=== PATIENT | female | born 1950 | race Hispanic/Latino ===

== ENCOUNTER 2018-07-14 19:12 | Emergency (ER) | payer MEDICARE ==
--- OUTSIDE RECORDS SUMMARY | 2018-07-14 19:16 | XMS REPORT | Summary of Care ---
:1950 Author Organization [facility] Address [address] [place], [place] [address]- Encounter HQ Encntr_alias(FIN) [id number] Date(s): 09/03/17 - 09/03/17 [facility] [address] [place] [phone]- Discharge Disposition: Home or Self Care Attending Physician: Pili Mosley X RAY TECHNICIAN Vital Signs No data available for this section Problem List Condition Effective Dates Status Health Status Informant Afib(Confirmed) Active Congestive heart failure Active (CHF)(Confirmed) Hypercholesteremia(Confirmed) Active Hypertension(Confirmed) Active Simple obesity(Confirmed) Active Allergies, Adverse Reactions, Alerts Substance Reaction Severity Status NKDA Active Medications No data available for this section Results No data available for this section Immunizations No data available for this section Procedures Procedure Date Related Diagnosis Body Site Status Cardioversion Completed Cervical smear biopsy taken Completed Social History Social History Type Response Substance Abuse Use: None. Exercise Exercise duration: 30. Exercise frequency: 3-4 times/week. Exercise type: Aerobics. Employment/School Status: Retired. Alcohol Past, Type Beer. Smoking Status Never smoker; Concerns about tobacco use in household: No; Exposure to Tobacco Smoke None; Cigarette Smoking Last 365 Days No; Reg Smoking Cessation Counseling No entered on: 08/30/17 Assessment and Plan No data available for this section
--- OUTSIDE RECORDS SUMMARY | 2018-07-14 19:16 | XMS REPORT | Summary of Care ---
:1950 Author Organization [facility] Address [address] [place] [address]- Encounter HQ Arturo_yan(SUPRIYA) [id number] Date(s): 04/26/17 - 04/26/[address] [address]- [phone] Discharge Disposition: Home or Self Care Attending Physician: Kingsley Aguilar DO Admitting Physician: Kingsley Aguilar DO Referring Physician: Kingsley Aguilar DO Vital Signs Most recent to oldest 1 2 3 [Reference Range]: Height 154.94 cm (04/23/17 9:50 AM) Blood Pressure [90-140/60-90 132/63 mmHg 139/74 mmHg 130/63 mmHg mmHg] (04/26/17 12:10 PM) (04/26/17 11:53 AM) (04/26/17 11:38 AM) Respiratory Rate [14-20 22 BRMIN 20 BRMIN 21 BRMIN BRMIN] *HI* (04/26/17 11:53 AM) *HI* (04/26/17 12:10 PM) (04/26/17 11:38 AM) Weight 76.364 kg (04/23/17 9:50 AM) Body Mass Index 31.81 m2 (04/23/17 9:50 AM) Problem List Condition Effective Dates Status Health Status Informant Afib(Confirmed) Active Congestive heart failure Active (CHF)(Confirmed) Hypercholesteremia(Confirmed) Active Hypertension(Confirmed) Active Allergies, Adverse Reactions, Alerts Substance Reaction Severity Status NKDA Active Medications BD Normal Saline Flush 25 mL, Route: IV, Drug Form: INJ, PRN, PRN Line Flush, Start date: 04/26/17 6:00 :00 DEVELOPMENTAL PSYCHOLOGIST, Duration: 30 day, Stop date: 05/26/17 5:59:00 DEVELOPMENTAL PSYCHOLOGIST Notes: (Same as: BD Posiflush) Start Date: 04/26/17 Stop Date: 04/26/17 Status: DiscontinuedBD Normal Saline Flush 10 mL, Route: IV, Drug Form: INJ, PRN, PRN Line Flush, Start date: 04/26/17 6:00 :00 DEVELOPMENTAL PSYCHOLOGIST, Duration: 30 day, Stop date: 05/26/17 5:59:00 DEVELOPMENTAL PSYCHOLOGIST Notes: (Same as: BD Posiflush) Start Date: 04/26/17 Stop Date: 04/26/17 Status: Discontinuedbuffered lidocaine 1% INJ 0.1 mL, Route: INTRADERM, Drug Form: SOLN, Dosing Weight 76.364, kg, ONCALL, Start date: 04/26/17 9:00:00 DEVELOPMENTAL PSYCHOLOGIST, Duration: 1 doses or times Notes: Ingredients: 2 ml lidocaine 1% inj , 0.2ml sodium bicarbonate 8.4% inj total volume=2.2ml Refrigerate: 14 days Room temp: 7 days Start Date: 04/26/17 Stop Date: 04/26/17 Status: DiscontinuedLactated Ringers Injection IV 1,000 mL 1,000 mL, Rate: 25 ml/hr, Infuse over: 40 hr, Route: IV, Dosing Weight 76.364 kg , Total Volume: 1,000, Start date: 04/26/17 8:41:00 DEVELOPMENTAL PSYCHOLOGIST, Duration: 30 day, Stop date: 05/26/17 8:40:00 DEVELOPMENTAL PSYCHOLOGIST, 1.84, m2 Start Date: 04/26/17 Stop Date: 04/26/17 Status: Discontinued Results ELECTROLYTES Most recent to oldest [Reference Range]: 1 Sodium Lvl [135-145 mEq/L] 140 mEq/L (04/26/17 9:20 AM) Potassium Lvl [3.5-5.1 mEq/L] 3.4 mEq/L *LOW* (04/26/17 9:20 AM) HEMATOLOGY Most recent to oldest [Reference Range]: 1 Hgb [12.0-16.0 g/dL] 12.3 g/dL (04/26/17 9:20 AM) Hct [36.0-48.0 %] 36.2 % (04/26/17 9:20 AM) Platelet [133-450 K/CMM] 123 K/CMM *LOW* (04/26/17 9:20 AM) PT [12.0-14.7 seconds] 16.0 seconds *HI* (04/26/17 9:20 AM) INR [0.85-1.17] 1.27 *HI* (04/26/17 9:20 AM) PTT [22.9-35.8 seconds] 32.9 seconds (04/26/17 9:20 AM) Immunizations No data available for this section Procedures Procedure Date Related Diagnosis Body Site Cardioversion Cervical smear biopsy taken Social History Social History Type Response Substance Abuse Use: None. Alcohol Past, Type Beer. Smoking Status Never smoker; Concerns about tobacco use in household: No; Exposure to Tobacco Smoke None; Cigarette Smoking Last 365 Days No; Reg Smoking Cessation Counseling No Assessment and Plan No data available for this section
--- OUTSIDE RECORDS SUMMARY | 2018-07-14 19:16 | XMS REPORT | Summary of Care ---
:1950 Author Organization [facility] Address [address] [place], [place] [address]- Encounter HQ Marissa(FIN) [id number] Date(s): 03/15/17 - 03/15/17 [facility] [address] [facility] [address] [place] [address] [phone] Discharge Disposition: Home or Self Care Attending Physician: Lucero Rothman MD Referring Physician: Lucero Rothman MD Vital Signs Most recent to oldest [Reference Range]: 1 Height 154.94 cm (03/15/17 3:16 PM) Blood Pressure [90-140/60-90 mmHg] 147/95 mmHg *HI* (03/15/17 3:16 PM) Peripheral Pulse Rate [60-100 bpm] 108 bpm *HI* (03/15/17 3:16 PM) Weight 82.727 kg (03/15/17 3:16 PM) Body Mass Index 34.46 m2 (03/15/17 3:16 PM) Problem List No data available for this section Allergies, Adverse Reactions, Alerts Substance Reaction Severity Status NKDA Active Medications aspirin 81 mg tablet, chewable 81 mg=1 tab, PO, Daily, tab, 0 Refill(s) Start Date: 03/15/17 Status: Orderedatorvastatin 20 mg oral tablet 20 mg=1 tab, PO, Bedtime, # 90 tab, 3 Refill(s), Pharmacy: [facility]/pharmacy #[id number] Start Date: 03/15/17 Status: Orderedatorvastatin 20 mg oral tablet 20 mg=1 tab, PO, Bedtime, # 90 tab, 0 Refill(s) Start Date: 03/15/17 Stop Date: 03/15/17 Status: DiscontinuedCo-Q10 PO, Daily, 0 Refill(s) Start Date: 03/15/17 Status: Ordereddiltiazem 30 mg oral tablet 30 mg=1 tab, PO, Q6H, # 120 tab, 0 Refill(s) Start Date: 03/15/17 Stop Date: 03/15/17 Status: DiscontinuedEliquis 5 mg oral tablet 5 mg=1 tab, PO, BID, # 60 tab, 6 Refill(s), [id number] Start Date: 03/15/17 Status: Orderedfurosemide 40 mg oral tablet 40 mg=1 tab, PO, Daily, # 90 tab, 3 Refill(s), [id number] Start Date: 03/15/17 Status: Orderedfurosemide 40 mg oral tablet 40 mg=1 tab, PO, Daily, # 90 tab, 1 Refill(s) Start Date: 03/15/17 Stop Date: 03/15/17 Status: Discontinuedlisinopril 10 mg oral tablet 10 mg=1 tab, PO, Daily, # 90 tab, 3 Refill(s), [id number] Start Date: 03/15/17 Status: Orderedlisinopril 10 mg oral tablet 10 mg=1 tab, PO, Daily, # 90 tab, 0 Refill(s) Start Date: 03/15/17 Stop Date: 03/15/17 Status: Discontinuedmetoprolol tartrate 50 mg oral tablet 50 mg=1 tab, PO, BID, # 180 tab, 3 Refill(s), [id number] Start Date: 03/15/17 Status: Orderedmetoprolol tartrate 50 mg oral tablet 50 mg=1 tab, PO, BID, # 180 tab, 0 Refill(s) Start Date: 03/15/17 Stop Date: 03/15/17 Status: Discontinuedpantoprazole 40 mg oral enteric coated tablet 40 mg=1 tab, PO, Daily, # 90 tab, 3 Refill(s), [id number] Start Date: 03/15/17 Status: Orderedpantoprazole 40 mg oral enteric coated tablet 40 mg=1 tab, PO, Daily, # 90 tab, 0 Refill(s) Start Date: 03/15/17 Stop Date: 03/15/17 Status: Discontinuedpotassium chloride 20 mEq oral tablet, extended release 20 mEq=1 tab, PO, Daily, # 90 tab, 3 Refill(s), [id number] Start Date: 03/15/17 Status: Orderedpotassium chloride 20 mEq oral tablet, extended release 20 mEq=1 tab, PO, Daily, # 90 tab, 1 Refill(s) Start Date: 03/15/17 Stop Date: 03/15/17 Status: Discontinuedsotalol 80 mg oral tablet 80 mg=1 tab, PO, BID, # 180 tab, 3 Refill(s), [id number] Start Date: 03/15/17 Status: Orderedwarfarin 5 mg oral tablet 5 mg=1 tab, PO, Daily, # 90 tab, 0 Refill(s) Start Date: 03/15/17 Stop Date: 03/15/17 Status: Discontinued Results No data available for this section Immunizations No data available for this section Procedures No data available for this section Social History Social History Type Response Smoking Status Never smoker; Concerns about tobacco use in household: No; Exposure to Tobacco Smoke None; Cigarette Smoking Last 365 Days No; Reg Smoking Cessation Counseling No Assessment and Plan No data available for this section
--- OUTSIDE RECORDS SUMMARY | 2018-07-14 19:16 | XMS REPORT | Continuity of Care Document ---
:1950 Author Organization Interface Problems Problem Status Onset Classification Date Comments Source Date Reported 3 MONTH FOLLOW UP Active 11/30/[address] Paroxysmal atrial 09/08/19 01/05/2018 [facility] fibrillation [address] [place] [address] I48.0 Active 08/31/[address] 3 MONTH F/U Active 05/10/[address] FOLLOW UP Active 04/26/[address] CHF Active 03/15/[address] NEW PATIENT/ A-FIB, Active 01/29/20 [facility] CHF/SELF REF [address] [place] [address] Afib Active Problem 01/05/2018 [facility] Dickey,[facility] Congestive heart Active Problem [facility]/05[facility] (<span Keli, ID="[id number]">Con [place] firmed</span>) [facility] Hypercholesteremia Active Problem 01/05/2018 [facility]LOS Dickey,[facility] Hypertension Active Problem 01/05/2018 [facility]ARLOS Dickey,[facility] Dilated 01/05/2018 [facility] cardiomyopathy [facility] Long QT syndrome 01/05/2018 [facility] Hypertensive heart 01/05/2018 [facility] disease with heart Medical failure Center Chronic systolic 01/05/2018 [facility] heart failure [facility] 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 [facility] Pure 01/05/2018 [facility] hypercholesterolemia, 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 01/05/2018 [facility] aspirin [facility] half-way use of 01/05/2018 [facility] anticoagulants [facility] Atrial premature 01/05/2018 [facility] Simple obesity Active Problem 01/05/2018 [facility] GERD Active Problem 03/04/2018 [facility] Hepatitis B core Active Diagnosis 03/04/2018 [facility] antibody positive [facility] Elevated liver Active Diagnosis 03/04/2018 [facility] enzymes [facility] Encounter for Active Diagnosis 12/29/2017 Sal screening for [facility] malignant neoplasm of Gastro colon Medications Medication Details Route Status Patient Ordering Order Source Instructions Provider Date Suprep Bowel As directed By Mouth Active -- By Mouth Javy [facility] Prep kit 018 [facility] metoprolol 100 mg=1 Active [place] tartrate 100 mg tab, PO, 018 Medical oral tablet BID, # 180 Center tab, 3 Refill(s), Pharmacy: [facility]/pharmac y #[id number], new dose...d/c 50 mg tab amLODIPine 5 mg 5 mg=1 tab, Active [place] oral tablet PO, Daily, 018 Medical # 90 tab, 3 Center Refill(s), Pharmacy: [facility]/pharmac y #[id number] metoprolol 50 mg=1 No Longer [facility] tartrate 50 mg tab, PO, Active 018 Medical oral tablet BID, # 180 Center tab, 1 Refill(s), Pharmacy: [facility]/pharmac y #[id number] sotalol 160 mg 160 mg=1 Active [facility] oral tablet tab, PO, 017 Medical BID, # 180 Center tab, 3 Refill(s), Pharmacy: [facility]/pharmac y #[id number], new dose...d/c 80 mg rx Lidocaine 0.1 mL, Inactive [facility] Route: [facility] INTRADERM, Drug Form: SOLN, Dosing Weight 76.364, kg, ONCALL, Start date: 04/26/17 9:00:00 CYBER REVERSE ENGINEER, Duration: 1 doses or timesNotes: Ingredients : 2 ml lidocaine 1% inj , 0.2ml sodium bicarbonate 8.4% inj total volume=2.2m l Refrigerate : 14 days Room temp: 7 days Calcium 1,000 mL, Inactive [facility] Chloride 0.0014 Rate: 25 017 Hospital MEQ/ML / ml/hr, Potassium Infuse Chloride 0.004 over: 40 MEQ/ML / Sodium hr, Route: Chloride 0.103 IV, Dosing MEQ/ML / Sodium Weight Lactate 0.028 76.364 kg, MEQ/ML Total Injectable Volume: Solution 1,000, Start date: 04/26/17 8:41:00 CYBER REVERSE ENGINEER, Duration: 30 day, Stop date: 05/26/17 8:40:00 CYBER REVERSE ENGINEER, 1.84, m2 BD Normal 25 mL, Inactive [facility] Saline Flush Route: IV, 017 Hospital Drug Form: INJ, PRN, PRN Line Flush, Start date: 04/26/17 6:00:00 CYBER REVERSE ENGINEER, Duration: 30 day, Stop date: 05/26/17 5:59:00 CSTNotes: (Same as: BD Posiflush) apixaban 5 MG 5 mg=1 tab, Active [place] Oral Tablet PO, BID, # 017 Medical [Eliquis] 60 tab, 6 Center Refill(s), Pharmacy: [facility]/pharmac y #[id number] sotalol 80 mg 80 mg=1 Active [place] oral tablet tab, PO, 017 Medical BID, # 180 Center tab, 3 Refill(s), Pharmacy: [facility]/pharmac y #[id number] potassium 20 mEq=1 Active [place] chloride 20 mEq tab, PO, 017 Medical oral tablet, Daily, # 90 Center extended tab, 3 release Refill(s), Pharmacy: [facility]/pharmac y #[id number] pantoprazole 40 40 mg=1 Active [place] mg oral enteric tab, PO, 017 Medical coated tablet Daily, # 90 Center tab, 3 Refill(s), Pharmacy: [facility]/pharmac y #[id number] metoprolol 50 mg=1 Active [facility] tartrate 50 mg tab, PO, 017 Medical oral tablet BID, # 180 Center tab, 3 Refill(s), Pharmacy: [facility]/pharmac y #[id number] lisinopril 10 10 mg=1 Active [place] mg oral tablet tab, PO, 017 Medical Daily, # 90 Center tab, 3 Refill(s), Pharmacy: [facility]/pharmac y #[id number] Furosemide 40 40 mg=1 Active [place] MG Oral Tablet tab, PO, 017 Medical Daily, # 90 Center tab, 3 Refill(s), Pharmacy: [facility]/pharmac y #[id number] atorvastatin 20 20 mg=1 Active [place] mg oral tablet tab, PO, 017 Medical Bedtime, # Center 90 tab, 3 Refill(s), Pharmacy: [facility]/pharmac y #[id number] Co-Q10 PO, Daily, Active [place] 0 Refill(s) 017 Medical Center pantoprazole 40 40 mg=1 Inactive [place] mg oral enteric tab, PO, 017 Medical coated tablet Daily, # 90 Center tab, 0 Refill(s) Aspirin 81 MG 81 mg=1 Active [facility] Chewable Tablet tab, PO, 017 Medical Daily, tab, Center 0 Refill(s) metoprolol 50 mg=1 Inactive [facility] tartrate 50 mg tab, PO, 017 Medical oral tablet BID, # 180 Center tab, 0 Refill(s) potassium 20 mEq=1 Inactive [facility] chloride 20 mEq tab, PO, 017 Medical oral tablet, Daily, # 90 Center extended tab, 1 release Refill(s) lisinopril 10 10 mg=1 Inactive [facility] mg oral tablet tab, PO, 017 Medical Daily, # 90 Center tab, 0 Refill(s) Furosemide 40 40 mg=1 Inactive [facility] MG Oral Tablet tab, PO, 017 Medical Daily, # 90 Center tab, 1 Refill(s) diltiazem 30 mg 30 mg=1 Inactive [facility] oral tablet tab, PO, 017 Medical Q6H, # 120 Center tab, 0 Refill(s) warfarin 5 mg 5 mg=1 tab, Inactive [facility] oral tablet PO, Daily, 017 Medical # 90 tab, 0 Center Refill(s) atorvastatin 20 20 mg=1 Inactive [facility] mg oral tablet tab, PO, 017 Medical Bedtime, # Center 90 tab, 0 Refill(s) lisinopril 1 tab(s) orally Active 10 mg orally [facility] once a day [facility] atorvastatin 1 tab(s) orally Active 20 mg orally [facility] once a day [facility] pantoprazole 1 tab(s) orally Active 40 mg orally [facility] once a day [facility] furosemide 1 tab(s) orally Active 40 mg orally [facility] once daily [facility] amlodipine 1 tab(s) orally Active 5 mg orally [facility] once a day [facility] aspirin 1 tab(s) orally Active 81 mg orally [facility] once a day [facility] potassium 1 tab(s) orally Active 20 mEq orally [facility] chloride 2 times a day [facility] Co Q-10 1 cap(s) orally Active 100 mg orally [facility] once a day [facility] apixaban 1 tab(s) orally Active 5 mg orally 2 [facility] times a day [facility] ubiquinone not defined NA Active [facility] furosemide 1 tab(s) orally Active 40 mg orally [facility] once daily [facility] Allergies, Adverse Reactions, Alerts Substance Category Reaction Severity Reaction Status Date Comments Source type Reported N.K.D.A. Adverse Info Not Adverse Active [facility] Reaction Available Reaction 8 [facility] Immunizations Immunization Date Given Site Status Last Updated Comments Source Results Order Name Results Value Reference Date Interpretation Comments Source Range Abdomen RUQ Abdomen PROCEDURE: RIGHT UPPER QUADRANT ABDOMINAL ULTRASOUND 01/28 [facility] US RUQ US /2017 [facility] INDICATION: Elevated liver enzymes. Read by: Del Luo MD Dictated Date/time: 01/28/18 14:29 Electronically Signed by: Del Luo MD 01/28/18 14:32 FINAL REPORT COMPARISON: None TECHNIQUE: Sonographic evaluation of the right upper quadrant of the abdomen was performed with supplemental color and pulsed Doppler. FINDINGS: LIVER: The liver is normal in contour and morphology with normal parenchymal echogenicity. GALLBLADDER: There are no gallstones, sludge, pericholecystic fluid, or wall thickening. BILE DUCTS: No intrahepatic biliary dilatation. The common bile duct measures 8 mm. PANCREAS: The visualized portions of the pancreas appear normal with much of the pancreas obscured by overlying gas. RIGHT KIDNEY: The right kidney measures 8.8 cm in length. Normal renal contour and morphology with normal echogenicity. There is no hydronephrosis. Additional comments: No free fluid seen in Gilbert's pouch. IMPRESSION: Mild prominence of the common bile duct. Otherwise, normal exam. SL: [id number] Ext Lower Ext Lower Procedure: Right Lower Extremity Arterial Ultrasound. 09/13 [facility] Arterial Arterial /2017 [facility] Doppler Doppler unilat US unilat US Clinical Indication: Aneurysm of right lower extremity artery, hypertension. Read by: Diogo Candelaria MD Dictated Date/time: 09/13/17 14:32 Electronically Signed by: Diogo Candelaria MD 09/13/17 14:35 FINAL REPORT Comparison: None. TECHNIQUE: Bilateral lower extremity arterial Doppler evaluation without pressures was performed with richard scale, color scale and Doppler waveforms evaluation. FINDINGS: RIGHT LOWER EXTREMITY: SOFIA is 0.99 There are normal multiphasic waveforms and peak systolic velocities of the right common femoral artery, superficial femoral artery, popliteal artery, anterior tibial artery, posterior tibial artery, and dorsalis pedis artery. LEFT LOWER EXTREMITY: SOFIA is 1.07 There is no arterial Doppler evidence of significant peripheral arterial occlusive disease. IMPRESSION: 1. Unremarkable right lower extremity exam. SL:[id number] Spine Spine Clinical Indication: Fall, low back pain with bilateral lower extremity radiculopathy 09/03 - [facility] lumbar wo lumbar - [facility] contrast contrast Comparison: None MRI MRI Read by: Shameka Hunt DO Dictated Date/time: 09/04/17 16:04 TECHNIQUE: Multiplanar T1, T2, STIR weighted noncontrast MRI of the lumbar spine is performed on the 3 Lizet magnet. Electronically Signed by: Shameka Hunt DO 09/04/17 16:13 FINAL REPORT FINDINGS: ALIGNMENT AND GENERAL ASSESSMENT: There is normal alignment of the lumbar spine. The bone marrow is normal for the patient's age. There is no fracture. The anterior and posterior paraspinal soft t issues are normal. The conus medullaris ends at the L1 level. There is a 2.2 x 1.1 x 1.1 cm oval heterogeneous T1, high T2 signal intensity focus on the anterior aspects of the conus at the L1 level wit h a rim of markedly low signal along its margins. There is mild tethering of the lower conus to the anterior dura just above this lesion at the T12-L1 disc space level. For the sake of nomenclature, five lumbar vertebrae are assumed. DISC SPACES: T12-L1: There is disc desiccation without disc bulging. There is no central or foraminal stenosis. The facet joints are unremarkable. L1-L2: There is disc desiccation and mild generalized disc bulging. There is no central or foraminal stenosis. The facet joints are unremarkable. L2-L3: There is disc desiccation and mild generalized disc bulging. There is mild facet hypertrophy and ligamentum flavum thickening. There is mild bilateral foraminal stenosis but no spinal canal stenosis. L3-L4: There is mild generalized disc bulging. There is moderate facet hypertrophy. There is a 1.2 x 0.8 cm heterogeneous synovial cyst projecting anteromedially off the left-sided facet joint. Thickeni ng of the ligamentum flavum is also present. There is moderate to severe spinal stenosis and moderate bilateral foraminal stenosis. L4-L5: There is a mild circumferential disc/osteophyte complex. There is moderate facet hypertrophy. There is moderate bilateral foraminal stenosis and borderline spinal canal stenosis. L5-S1: Grade 1 anterolisthesis is again noted. There is a mild circumferential disc/osteophyte complex, more prevalent in the foraminal and far lateral aspects of the disc space. There is severe bilater al facet hypertrophy. There is severe bilateral foraminal stenosis and borderline spinal stenosis. IMPRESSION: 1. 2.2 x 1.1 x 1.1 cm heterogeneous signal focus along the anterior aspects of the filum terminale. Mild adjacent cord tethering. Signal characteristic suggests presence of prior hemorrhage. Findings co uld relate to prior epidural hematoma from injury; however, there is no adjacent vertebral body fracture. An arteriovenous malformation would be additional consideration at this location. Correlation with any prior outside imaging suggested. 2. Degenerative changes as detailed above, most notable at L3-L4 where there is moderate to severe spinal stenosis and moderate bilateral foraminal stenosis. SL: [id number] ELECTROLYTE Potassium 3.4 meq/L 3.5 - 5.1 12 [facility] S Lvl /2016 [facility] ELECTROLYTE Sodium Lvl 140 meq/L 135 - 145 12 [facility] S /2016 [facility] HEMATOLOGY Hct 36.2 % 36.0 - 04/26 [facility] 48.0 /2017 [facility] HEMATOLOGY Hgb 12.3 g/dL 12.0 - 04/26 [facility] 16.0 /2017 [facility] HEMATOLOGY Platelet 123 K/CMM 133 - 450 12/ [facility]eli /2017 [facility] HEMATOLOGY PTT 32.9 s 22.9 - 12/ [facility]eli 35.8 /2017 [facility] HEMATOLOGY PT 16.0 s 12.0 - 12/ Keli 14.7 /2017 [facility] HEMATOLOGY INR 1.27 0.85 - 12 [facility] 1.17 /2016 Hospital Vital Signs Vital Sign Value Date Comments Source Weight 159 01/17/2018 [facility] Diastolic (mm Hg) 87 01/17/2018 [facility] Gastro Systolic (mm Hg) 147 01/17/2018 [facility] Gastro Heart Rate 76 01/17/2018 [facility] Weight 159 12/28/2017 [facility] Diastolic (mm Hg) 76 12/28/2017 [facility]astro Systolic (mm Hg) 139 12/28/2017 [facility] Gastro Heart Rate 79 12/28/2017 [facility] BMI Calculated 29.35 11/29/2017 [facility] Weight 70.455 11/29/2017 [facility] Height 154.94 cm 11/29/2017 [facility] Heart Rate 82 11/29/2017 [facility] Systolic (mm Hg) 168 11/29/2017 [facility] Diastolic (mm Hg) 107 11/29/2017 [facility] Weight 65.909 08/30/2017 [facility] Height 154.94 cm 08/30/2017 [facility] Systolic (mm Hg) 120 08/30/2017 [facility] Diastolic (mm Hg) 70 08/30/2017 [facility] BMI Calculated 27.45 08/30/2017 [facility] Heart Rate 89 08/30/2017 [facility] BMI Calculated 30.48 05/10/2017 [facility] Weight 73.182 05/10/2017 [facility] Height 154.94 cm 05/10/2017 [facility] Heart Rate 99 05/10/2017 [facility] Systolic (mm Hg) 113 05/10/2017 [facility] Diastolic (mm Hg) 72 05/10/2017 [facility] Respitory Rate 22 04/26/2017 [facility] Systolic (mm Hg) 132 04/26/2017 [facility] Diastolic (mm Hg) 63 04/26/2017 [facility] Respitory Rate 20 04/26/2017 [facility] Systolic (mm Hg) 139 04/26/2017 [facility] Diastolic (mm Hg) 74 04/26/2017 [facility] Systolic (mm Hg) 130 04/26/2017 [facility] Diastolic (mm Hg) 63 04/26/2017 [facility] Respitory Rate 21 04/26/2017 [facility] BMI Calculated 31.81 04/23/2017 [facility] Weight 76.364 04/23/2017 [facility] Height 154.94 cm 04/23/2017 [facility] BMI Calculated 34.46 03/15/2017 [facility] Weight 82.727 03/15/2017 [facility] Height 154.94 cm 03/15/2017 [facility] Heart Rate 108 03/15/2017 [facility] Systolic (mm Hg) 147 03/15/2017 [facility] Diastolic (mm Hg) 95 03/15/2017 [facility] Encounters Location Location Encounter Encounter Reason Attending ADM DC Status Source Details Type Number For Provider Date Date Visit Outpatient [id number] Lucero Stephan 03/15 03/16 [facility] /2016 [facility] K[facility] Day Surgery [id number] Kingsley 04/26 04/26 [facility] Artemio Aguilar /2016 [facility] Outpatient [id number] Kingsley 05/10 05/11 [facility] [place] [facility] Outpatient [id number] RAFFAELE 05/13 Active [facility] BLAZE Artemio Outpatient [id number] RAFFAELE 08/11 Active [facility] BLAZE Artemio Outpatient [id number] LIANE UKENI 08/11 Active [facility] Artemio Outpatient [id number] RAFFAELE 08/30 Active [facility] BLAZE [place] [facility] [id number] Kingsley 08/30 08/31 [facility] Aguilar /2017 Medical Card[facility] [place] Keli [facility] Outpt Diag [id number] Liane Ukeni 09/03 09/04 [facility] /2017 [facility] Outpt Diag [id number] Kingsley 09/13 09/14 [facility] Outpatient [id number] Kingsley 11/29 11/30 [facility] /2017 [facility] Keli Procedures Procedure Code Date Perfomer Comments Source Cardioversion [id number] [facility] Cervical smear [id number] [facility] Keli biopsy taken Cardioversion [id number] [facility] Cervical smear [id number] [facility] biopsy taken [facility] Cardioversion [id number] [facility] Cervical smear [id number] [facility] biopsy taken Hospital
--- OUTSIDE RECORDS SUMMARY | 2018-07-14 19:16 | XMS REPORT | Summary of Care ---
:1950 Author Organization [facility] Outpatient Imaging Keli Address [address] [place], [place] [address]- Encounter HQ Encntr_alias(FIN) [id number] Date(s): 09/13/17 - 09/13/17 [facility] Outpatient Imaging [facility] [address] [place] [address]- Discharge Disposition: Home or Self Care Attending Physician: Kingsley Aguilar DO Vital Signs No data available for this [...]
--- OUTSIDE RECORDS SUMMARY | 2018-07-14 19:16 | XMS REPORT | Summary of Care ---
:1950 Author Organization [facility] Address [address] [address]- Encounter HQ Arturo_yan(SUPRIYA) [id number] Date(s): 05/10/17 - 05/10/17 [facility] [address] [place] [address] [phone] Discharge Disposition: Home or Self Care Attending Physician: Kingsley Aguilar DO Referring Physician: Kingsley Aguilar DO Vital Signs Most recent to oldest [Reference Range]: 1 Height 154.94 cm (05/10/17 3:03 PM) Blood Pressure [90-140/60-90 mmHg] 113/72 mmHg (05/10/17 3:03 PM) Peripheral Pulse Rate [60-100 bpm] 99 bpm (05/10/17 3:03 PM) Weight 73.182 kg (05/10/17 3:03 PM) Body Mass Index 30.48 m2 (05/10/17 3:03 PM) Problem List Condition Effective Dates Status Health Status Informant Afib(Confirmed) Active Congestive heart failure Active (CHF)(Confirmed) Hypercholesteremia(Confirmed) Active Hypertension(Confirmed) Active Allergies, Adverse Reactions, Alerts Substance Reaction Severity Status NKDA Active Medications sotalol 160 mg oral tablet 160 mg=1 tab, PO, BID, # 180 tab, 3 Refill(s), Pharmacy: [facility]/pharmacy #[id number], new dose...d/c 80 mg rx Start Date: 05/10/17 Status: Ordered Results No data available for this section [...]
--- OUTSIDE RECORDS SUMMARY | 2018-07-14 19:17 | XMS REPORT | Summary of Care ---
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) - Pure hypercholesterolemia, unspecified (Final) - [facility] (current) use of aspirin (Final) - [facility] (current) use of anticoagulants (Final) - Atrial premature depolarization (Final) - Discharge Disposition: Home or Self Care Attending Physician: Kingsley Aguilar DO Referring Physician: Kingsley Aguilar DO Vital Signs Most recent to oldest [Reference Range]: 1 Height 154.94 cm (08/30/17 1:24 PM) Blood Pressure [90-140/60-90 mmHg] 120/70 mmHg (08/30/17 1:24 PM) Peripheral Pulse Rate [60-100 bpm] 89 bpm (08/30/17 1:24 PM) Weight 65.909 kg (08/30/17 1:24 PM) Body Mass Index 27.45 m2 (08/30/17 1:24 PM) Problem List Condition Effective Dates Status Health Status Informant Afib(Confirmed) Active Congestive heart failure Active (CHF)(Confirmed) Hypercholesteremia(Confirmed) Active Hypertension(Confirmed) Active Simple obesity(Confirmed) Active Allergies, Adverse Reactions, Alerts Substance Reaction Severity Status NKDA Active Medications metoprolol tartrate 50 mg oral tablet 50 mg=1 tab, PO, BID, # 180 tab, 1 Refill(s), Pharmacy: [facility]/pharmacy #[id number] Start Date: 09/03/17 Stop Date: 11/29/17 Status: Discontinued Results No data available for [...] Reg Smoking Cessation Counseling No entered on: 11/29/17 Assessment and Plan No data available for this section
--- OUTSIDE RECORDS SUMMARY | 2018-07-14 19:17 | XMS REPORT ---
:1950 Author Organization eClinicalWorks Care Team Providers Name Role Phone Zora Palafox Provider Role Unavailable Allergies, Adverse Reactions, Alerts Substance Reaction Event Type N.K.D.A. Info Not Available Non Drug Allergy Problems Problem Type Condition Code Onset Dates Condition Status Assessment GERD (gastroesophageal reflux K21.9 Active disease) Assessment Encounter for screening for Z12.11 Active malignant neoplasm of colon Problem GERD (gastroesophageal reflux K21.9 Active disease) Medications Medication Code Code Instructions Start End Status Dosage System Date Date lisinopril [facility] 16808609217 10 mg orally Active 1 tab(s) once a day pantoprazole [facility] 08119558947 40 mg orally Active 1 tab(s) once a day potassium [facility] 82587652049 20 mEq orally 2 Active 1 tab(s) chloride times a day ubiquinone ND 0 Active not defined apixaban [facility] 97477879920 5 mg orally 2 Active 1 tab(s) times a day furosemide ND 21817385490 40 mg orally Active 1 tab(s) once daily Co Q-10 [facility] 48063773418 100 mg orally Active 1 cap(s) once a day aspirin [facility] 33407081159 81 mg orally Active 1 tab(s) once a day Suprep Bowel [facility] 15666873302 -- By Mouth Dec 28, Active As directed Prep kit 2018 amlodipine [facility] 08457949750 5 mg orally Active 1 tab(s) once a day atorvastatin [facility] 28760836356 20 mg orally Active 1 tab(s) once a day Vital Signs Date/Time: Dec 28, 2017 Weight 159 lbs Blood Pressure Diastolic 76 mm Hg Blood Pressure Systolic 139 mm Hg Cardiac Monitoring Heart Rate 79 /min Height 5'1" Ft Results No Known Results Summary Purpose eClinicalWorks Submission
--- OUTSIDE RECORDS SUMMARY | 2018-07-14 19:17 | XMS REPORT ---
:1950 Author Organization [employer] Care Team Providers Name Role Phone Zora Palafox Provider Role Unavailable Allergies No Known Allergies Problems Problem Type Condition Code Onset Dates Condition Status Assessment Hepatitis B core antibody positive R76.8 Active Problem GERD (gastroesophageal reflux K21.9 Active disease) Medications No Known Medications Results No Known Results Summary Purpose eClinicalWorks Submission
--- OUTSIDE RECORDS SUMMARY | 2018-07-14 19:17 | XMS REPORT ---
:1950 Author Organization [employer] Care Team Providers Name Role Phone Zora Palafox Provider Role Unavailable Allergies No Known Allergies Problems Problem Type Condition Code Onset Dates Condition Status Problem GERD (gastroesophageal reflux K21.9 Active disease) Medications No Known Medications Results No Known Results Summary Purpose eClinicalWorks Submission
--- OUTSIDE RECORDS SUMMARY | 2018-07-14 19:17 | XMS REPORT | Summary of Care ---
:1950 Author Organization [facility] Address [address] [place] [address]- Encounter HQ Marissa(SUPRIYA) [id number] Date(s): 11/29/17 - 11/29/17 [facility] [address] [facility] [address] [place] [phone] Discharge Disposition: Home or Self Care Attending Physician: Kingsley Aguilar DO Referring Physician: Kingsley Aguilar DO Vital Signs Most recent to oldest [Reference Range]: 1 Height 154.94 cm (11/29/17 1:59 PM) Blood Pressure [90-140/60-90 mmHg] 168/107 mmHg *HI* (11/29/17 1:59 PM) Peripheral Pulse Rate [60-100 bpm] 82 bpm (11/29/17 1:59 PM) Weight 70.455 kg (11/29/17 1:59 PM) Body Mass Index 29.35 m2 (11/29/17 1:59 PM) Problem List Condition Effective Dates Status Health Status Informant Afib(Confirmed) Active Congestive heart failure Active (CHF)(Confirmed) Hypercholesteremia(Confirmed) Active Hypertension(Confirmed) Active Simple obesity(Confirmed) Active Allergies, Adverse Reactions, Alerts Substance Reaction Severity Status NKDA Active Medications amLODIPine 5 mg oral tablet 5 mg=1 tab, PO, Daily, # 90 tab, 3 Refill(s), Pharmacy: [facility]/pharmacy #[id number] Start Date: 11/29/17 Status: Orderedmetoprolol tartrate 100 mg oral tablet 100 mg=1 tab, PO, BID, # 180 tab, 3 Refill(s), Pharmacy: [facility]/pharmacy #[id number], new dose...d/c 50 mg tab Start Date: 11/29/17 Status: Ordered Results No data available for [...]
--- OUTSIDE RECORDS SUMMARY | 2018-07-14 19:17 | XMS REPORT ---
:1950 Author Organization [employer]Works Care Team Providers Name Role Phone Zora Palaofx Provider Role Unavailable Allergies, Adverse Reactions, Alerts Substance Reaction Event Type N.K.D.A. Info Not Available Non Drug Allergy Problems Problem Type Condition Code Onset Dates Condition Status Assessment Elevated liver enzymes R74.8 Active Assessment Colon cancer screening Z12.11 Active Problem GERD (gastroesophageal reflux K21.9 Active disease) Medications Medication Code Code Instructions Start End Status Dosage System Date Date lisinopril [facility] 49138664038 10 mg orally Active 1 tab(s) once a day atorvastatin [facility] 73169800405 20 mg orally Active 1 tab(s) once a day pantoprazole [facility] 63360813944 40 mg orally Active 1 tab(s) once a day Suprep Bowel [facility] 72278328657 -- By Mouth Dec 28, Active As directed Prep kit 2018 furosemide [facility] 32579463390 40 mg orally Active 1 tab(s) once daily amlodipine [facility] 08563463145 5 mg orally Active 1 tab(s) once a day aspirin [facility] 75741828114 81 mg orally Active 1 tab(s) once a day potassium [facility] 53129015282 20 mEq orally 2 Active 1 tab(s) chloride times a day Co Q-10 [facility] 61621699752 100 mg orally Active 1 cap(s) once a day apixaban [facility] 76656678117 5 mg orally 2 Active 1 tab(s) times a day Vital Signs Date/Time: Jan 17, 2018 Weight 159 lbs Blood Pressure Diastolic 87 mm Hg Blood Pressure Systolic 147 mm Hg Cardiac Monitoring Heart Rate 76 /min Height 5'1" Ft Results No Known Results Summary Purpose eClinicalWorks Submission
--- OUTSIDE RECORDS SUMMARY | 2018-07-14 19:17 | XMS REPORT | Summary of Care ---
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
[2018-07-14] MEDS ORDERED: ONDANSETRON 4 MG/2 ML VIAL ONE (21:41)
[2018-07-14] MEDS ORDERED: MAGNE/ALUM HYDROXD 30 ML UCUP ONE (21:41)
[2018-07-14] MEDS ORDERED: PANTOPRAZOLE 40 MG INJ ONE (21:41)
[2018-07-14] MEDS ORDERED: LIDOCAINE VISCOUS 2% SOLN 15 ML UDC ONE (21:41)
[2018-07-14 21:48] LABS: Absolute Monocytes 0.6 K/uL (0.1-1.3); Basophils % 0.5 % (0-1.3); Eosinophils % 0.6 % (0-4.4); Hematocrit 41.6 % (36.0-45.0); Lymphocytes % 11.8 % (15.3-44.8); MPV 8.4 fL (7.6-11.3)
[2018-07-14 22:01] LABS: Protime INR 1.14
[2018-07-14 22:13] LABS: Albumin 3.8 g/dL (3.4-5.0); Bilirubin Direct 0.3 mg/dL (0-0.2); Bilirubin Total 1.4 mg/dL (0.2-1.0); Potassium 3.8 mmol/L (3.5-5.1); Protein, Total 8.9 g/dL (6.4-8.2); Troponin (Emerg Dept Use Only) 0.03 ng/mL (0.0-0.045)
[2018-07-14] MEDS ORDERED: FUROSEMIDE 20 MG/ 2ML VIAL ONE (23:04)
--- NOTE | 2018-07-14 23:10 | EDPHYS ---
Physician Documentation [facility] Name: Shyanne Khan Age: 68 yrs Sex: Female : 1950 Arrival Date: 07/14/2018 Time: 19:13 Bed 2 Private MD: ED Physician Matt Nair HPI: 07/14 21:20 This 68 yrs old Female presents to ER via Ambulatory with complaints of cp Heartburn, Diarrhea. 21:20 The patient presents with abdominal pain in the epigastric area. cp 21:20 Onset: The symptoms/episode began/occurred yesterday. The symptoms do not radiate. cp Associated signs and symptoms: Pertinent positives: diarrhea, Pertinent negatives: constipation, fever. The symptoms are described as burning, waxing/waning. Severity of pain: in the emergency department the pain has improved markedly. Patient reports pain started after eating dinner yesterday. Historical: - Allergies: 19:41 No Known Allergies; ea - Home Meds: 19:41 lisinopril 10 mg Oral tab [Active]; Eliquis 5 mg oral tab 1 tab 2 times per day ea [Active]; furosemide 20 mg Oral tab 1 tab once daily [Active]; potassium chloride 20 mEq Oral TbER 1 tab once daily [Active]; amlodipine 5 mg tab 1 tab once daily [Active]; aspirin 81 mg Oral chew 1 tab once daily [Active]; metoprolol tartrate 100 mg Oral tab 1 tab once daily [Active]; - PMHx: 19:41 Hypertension; CHF; Atrial Fib; ea - PSHx: 19:41 None; ea - Immunization history:: Adult Immunizations up to date. - Social history:: Smoking status: Patient/guardian denies using tobacco. - Ebola Screening: : No symptoms or risks identified at this time. ROS: 21:25 Constitutional: Negative for body aches, chills, fever, poor PO intake. cp 21:25 Eyes: Negative for injury, pain, redness, and discharge. cp 21:25 ENT: Negative for drainage from ear(s), ear pain, sore throat, difficulty swallowing, difficulty handling secretions. 21:25 Neck: Negative for tenderness. 21:25 Cardiovascular: Negative for chest pain, edema, orthopnea, palpitations. 21:25 Respiratory: Negative for cough, shortness of breath, wheezing. 21:25 Abdomen/GI: Positive for abdominal pain, diarrhea, of the epigastric area, Negative for vomiting, constipation, anorexia. 21:25 Back: Negative for pain at rest, pain with movement, radiated pain. 21:25 : Negative for urinary symptoms. 21:25 Skin: Negative for cellulitis, rash. 21:25 Neuro: Negative for altered mental status, headache, syncope, weakness. 21:25 All other systems are negative. Exam: 21:30 Constitutional: The patient appears in no acute distress, alert, awake, cp non-diaphoretic, non-toxic, well developed, well nourished. 21:30 Head/Face: Normocephalic, atraumatic. cp 21:30 Eyes: Periorbital structures: appear normal, Pupils: equal, round, and reactive to light and accomodation, Extraocular movements: intact throughout, Conjunctiva: normal, no exudate, no injection, Sclera: no appreciated abnormality, Lids and lashes: appear normal, bilaterally. 21:30 ENT: External ear(s): are unremarkable, Ear canal(s): are normal, clear, TM's: bulging, is not appreciated, bilaterally, dullness, bilaterally, erythema, is not appreciated, bilaterally, Nose: is normal, Mouth: Lips: moist, Oral mucosa: pink and intact, moist, Posterior pharynx: Airway: no evidence of obstruction, patent, Uvula: midline, swelling, is not appreciated, erythema, is not appreciated, exudate, is not appreciated. 21:30 Chest/axilla: Inspection: normal, Palpation: is normal, no crepitus, no tenderness. 21:30 Cardiovascular: Rate: normal, Rhythm: irregularly irregular, JVD: is not appreciated. 21:30 Respiratory: the patient does not display signs of respiratory distress, Respirations: normal, no use of accessory muscles, no retractions, no splinting, no tachypnea, labored breathing, is not present, Breath sounds: are clear throughout, no decreased breath sounds, no stridor, no wheezing. 21:30 Abdomen/GI: Inspection: abdomen appears normal, Bowel sounds: active, all quadrants, Palpation: abdomen is soft and non-tender, in all quadrants, rebound tenderness, is not appreciated, involuntary guarding, is not appreciated. 21:30 Back: pain, is absent, ROM is normal. 21:30 Skin: cellulitis, is not appreciated, no rash present. 21:30 Neuro: Orientation: to person, place \T\ time. Mentation: is normal, Cerebellar function: is grossly normal, Motor: moves all fours, strength is normal, Sensation: is normal. 21:53 ECG was reviewed by the Attending Physician. cp Vital Signs: 19:37 BP 173 / 98; Pulse 98; Resp 16; Temp 98.3; Pulse Ox 98% ; Weight 71.21 kg; Height 5 ft. ea 1 in. (154.94 cm); 20:50 BP 160 / 110; Pulse 99; Resp 17; Pulse Ox 98% ; rr5 21:20 BP 141 / 70; Pulse 91; Resp 20; Pulse Ox 98% ; rr5 21:48 BP 114 / 66; Pulse 99; Resp 18; Pulse Ox 98% ; rr5 22:15 BP 130 / 79; Pulse 66; Resp 17; Pulse Ox 99% ; rr5 23:00 BP 135 / 91; Pulse 91; Resp 19; Pulse Ox 98% ; rr5 23:20 BP 127 / 75; Pulse 90; Resp 16; Pulse Ox 99% ; rr5 19:37 Body Mass Index 29.66 (71.21 kg, 154.94 cm) ea MDM: 21:05 Patient medically screened. cp 21:30 Differential diagnosis: AAA, cholecystitis, Cholelithiasis, gastritis, gastroesophageal cp reflux disease, pancreatitis, Peptic Ulcer Disease, Perf. Duodenal Ulcer, Ureterolithiasis, urinary tract infection. 23:08 Data reviewed: vital signs, nurses notes, lab test result(s), EKG, radiologic studies, cp plain films. 07/14 21:18 Order name: Basic Metabolic Panel cp 07/14 21:18 Order name: CBC with Diff cp 07/14 21:18 Order name: LFT's cp 07/14 21:18 Order name: Magnesium cp 07/14 21:18 Order name: NT PRO-BNP cp 07/14 21:18 Order name: PT-INR cp 07/14 21:18 Order name: Troponin (emerg Dept Use Only) cp 07/14 21:18 Order name: Lipase cp 07/14 21:50 Order name: CBC with Automated Diff; Complete Time: 22:19 EDMS 07/14 22:45 Interpretation: Normal except: MIAH% 80.1; LYM% 11.8. cp 07/14 22:04 Order name: Protime (+INR); Complete Time: 22:19 EDMS 07/14 22:14 Order name: Basic Metabolic Panel; Complete Time: 22:19 EDMS 07/14 22:45 Interpretation: Normal except: GLUC 123; BUN 27; GFR 58. cp 07/14 22:14 Order name: Liver (Hepatic) Function; Complete Time: 22:19 EDMS 07/14 22:14 Order name: Troponin (Emerg Dept Use Only); Complete Time: 22:19 EDMS 07/14 22:14 Order name: NT PRO-BNP; Complete Time: 22:19 EDMS 07/14 22:45 Interpretation: Abnormal: NT PRO-BNP 3371. cp 07/14 21:18 Order name: XRAY Chest (1 view) cp 07/14 21:18 Order name: EKG; Complete Time: 21:19 cp 07/14 21:18 Order name: Cardiac monitoring; Complete Time: 21:47 cp 07/14 21:18 Order name: EKG - Nurse/Tech; Complete Time: 21:47 cp 07/14 21:18 Order name: IV Saline Lock; Complete Time: 21:47 cp 07/14 21:18 Order name: Labs collected and sent; Complete Time: 21:48 cp 07/14 21:18 Order name: O2 Per Protocol; Complete Time: 21:48 cp 07/14 21:18 Order name: O2 Sat Monitoring; Complete Time: 21:48 cp 07/14 22:14 Order name: Magnesium; Complete Time: 22:19 EDMS 07/14 22:14 Order name: Lipase; Complete Time: 22:19 EDMS 07/14 22:20 Order name: US Abdomen Limited: RUQ abdomen cp EC:53 Rate is 90 beats/min. Rhythm is irregularly irregular. QRS interval is normal. QT cp interval is normal. T waves are Flattened in lead III. Interpreted by me. Reviewed by me. Administered Medications: 21:30 Drug: GI Cocktail without - (Maalox Suspension 30 ml, Lidocaine Liquid 2 % 15 rr5 ml) Route: PO; 23:22 Follow up: Response: No adverse reaction rr5 21:31 Drug: Zofran 4 mg Route: IVP; Site: right antecubital; rr5 23:23 Follow up: Response: No adverse reaction rr5 21:35 Drug: ProTONIX 40 mg Route: IVP; Site: right antecubital; rr5 23:23 Follow up: Response: No adverse reaction rr5 23:01 Drug: Lasix 20 mg {Note: bp 135/91.} Route: IVP; Site: right antecubital; rr5 23:22 Follow up: Response: No adverse reaction rr5 Disposition: 07/15 20:11 Co-signature as Attending Physician, Matt Nair MD. Disposition: 07/14/18 23:10 Discharged to Home. Impression: Epigastric pain. - Condition is Stable. - Discharge Instructions: Abdominal Pain, Adult, Gastroesophageal Reflux Disease, Adult. - Prescriptions for Protonix 40 mg Oral Tablet - take 1 tablet by ORAL route once daily; 30 tablet. Zofran 4 mg Oral Tablet - take 1 tablet by ORAL route every 12 hours As needed; 20 tablet. - Medication Reconciliation Form, Thank You Letter, Antibiotic Education, Prescription Opioid Use form. - Follow up: Private Physician; When: 2 - 3 days; Reason: Recheck today's complaints. - Problem is new. - Symptoms have improved. Signatures: Dispatcher [employer] EDMS Noe Mcfarlane PA PA cp Antunez, Elena, RN RN ea Starr, Gregory, MD MD Charles Wong RN RN rr5 Corrections: (The following items were deleted from the chart) 07/14 22:58 07/13 21:20 This 68 yrs old Female presents to ER via Ambulatory with cp complaints of Heartburn, Diarrhea. cp 07/14 23:33 23:10 07/14/2018 23:10 Discharged to Home. Impression: Epigastric pain. Condition is rr5 Stable. Forms are Medication Reconciliation Form, Thank You Letter, Antibiotic Education, Prescription Opioid Use. Follow up: Private Physician; When: 2 - 3 days; Reason: Recheck today's complaints. Problem is new. Symptoms have improved. cp
--- NOTE | 2018-07-14 23:10 | ER ---
Nurse's Notes [facility] Name: Shyanne Khan Age: 68 yrs Sex: Female : 1950 Arrival Date: 07/14/2018 Time: 19:13 Bed 2 Private MD: Diagnosis: Epigastric pain Presentation: 07/14 19:34 Presenting complaint: Patient states: Heart burn and diarrhea that started yesterday, ea pt reports the diarrhea has subsided but the heart burn is getting worse. Denies chest pain. Transition of care: patient was not received from another setting of care. Onset of symptoms was July 14, 2018. Risk Assessment: Do you want to hurt yourself or someone else? Patient reports no desire to harm self or others. Initial Sepsis Screen: Does the patient meet any 2 criteria? No. Patient's initial sepsis screen is negative. Does the patient have a suspected source of infection? No. Patient's initial sepsis screen is negative. Care prior to arrival: None. 19:34 Method Of Arrival: Ambulatory ea 19:34 Acuity: LÓPEZ 3 ea Historical: - Allergies: 19:41 No Known Allergies; ea - Home Meds: 19:41 lisinopril 10 mg Oral tab [Active]; Eliquis 5 mg oral tab 1 tab 2 times per day ea [Active]; furosemide 20 mg Oral tab 1 tab once daily [Active]; potassium chloride 20 mEq Oral TbER 1 tab once daily [Active]; amlodipine 5 mg tab 1 tab once daily [Active]; aspirin 81 mg Oral chew 1 tab once daily [Active]; metoprolol tartrate 100 mg Oral tab 1 tab once daily [Active]; - PMHx: 19:41 Hypertension; CHF; Atrial Fib; ea - PSHx: 19:41 None; ea - Immunization history:: Adult Immunizations up to date. - Social history:: Smoking status: Patient/guardian denies using tobacco. - Ebola Screening: : No symptoms or risks identified at this time. Screenin:49 Abuse screen: Denies threats or abuse. Denies injuries from another. Nutritional rr5 screening: No deficits noted. Tuberculosis screening: No symptoms or risk factors identified. Fall Risk None identified. Total Ness Fall Scale indicates No Risk (0-24 pts). Assessment: 20:35 General: Appears in no apparent distress. uncomfortable, Behavior is calm, cooperative, rr5 appropriate for age. Pain: Complains of pain in abdomen Pain does not radiate. Pain currently is 10 out of 10 on a pain scale. Quality of pain is described as aching, Pain began 1 day ago. Is intermittent. Neuro: Level of Consciousness is awake, alert, obeys commands, Oriented to person, place, time, situation, Appropriate for age. Cardiovascular: Capillary refill < 3 seconds Patient's skin is warm and dry. Respiratory: Airway is patent Respiratory effort is even, unlabored, Respiratory pattern is regular, symmetrical. GI: Abdomen is round Reports lower abdominal pain, upper abdominal pain, diarrhea, heart burn. : No signs and/or symptoms were reported regarding the genitourinary system. EENT: No signs and/or symptoms were reported regarding the EENT system. Derm: Skin is intact, Skin temperature is warm. Musculoskeletal: Capillary refill < 3 seconds, Range of motion: intact in all extremities. 20:35 Cardiovascular: Rhythm is atrial fibrillation. rr5 21:40 Reassessment: Patient appears in no apparent distress at this time. Patient is alert, rr5 oriented x 3, equal unlabored respirations, skin warm/dry/pink. awaiting for results. 23:00 Reassessment: Patient appears in no apparent distress at this time. Patient is alert, rr5 oriented x 3, equal unlabored respirations, skin warm/dry/pink. no complaints made. Patient denies pain at this time. Patient states feeling better. Patient states symptoms have improved. 23:20 Reassessment: Patient appears in no apparent distress at this time. Patient is alert, rr5 oriented x 3, equal unlabored respirations, skin warm/dry/pink. discharge instruction given and explained without complaints made. Patient denies pain at this time. Patient states feeling better. Patient states symptoms have improved. Vital Signs: 19:37 BP 173 / 98; Pulse 98; Resp 16; Temp 98.3; Pulse Ox 98% ; Weight 71.21 kg; Height 5 ft. ea 1 in. (154.94 cm); 20:50 BP 160 / 110; Pulse 99; Resp 17; Pulse Ox 98% ; rr5 21:20 BP 141 / 70; Pulse 91; Resp 20; Pulse Ox 98% ; rr5 21:48 BP 114 / 66; Pulse 99; Resp 18; Pulse Ox 98% ; rr5 22:15 BP 130 / 79; Pulse 66; Resp 17; Pulse Ox 99% ; rr5 23:00 BP 135 / 91; Pulse 91; Resp 19; Pulse Ox 98% ; rr5 23:20 BP 127 / 75; Pulse 90; Resp 16; Pulse Ox 99% ; rr5 19:37 Body Mass Index 29.66 (71.21 kg, 154.94 cm) ea ED Course: 19:13 Patient arrived in ED. mr 19:37 Triage completed. ea 19:42 Arm band placed on right wrist. ea 20:47 Charles Wong, RN is Primary Nurse. rr5 20:49 Patient has correct armband on for positive identification. Placed in gown. Bed in low rr5 position. Call light in reach. Side rails up X 1. waste reclaimer on. Pulse ox on. NIBP on. 21:05 Noe Mcfarlane PA is PHCP. cp 21:05 Matt Nair MD is Attending Physician. cp 21:35 Inserted saline lock: 20 gauge in right antecubital area, using aseptic technique. rr5 ,using aseptic technique. [facility] Blood collected. 23:21 No provider procedures requiring assistance completed. IV discontinued, intact, rr5 bleeding controlled, No redness/swelling at site. Pressure dressing applied. Administered Medications: 21:30 Drug: GI Cocktail without - (Maalox Suspension 30 ml, Lidocaine Liquid 2 % 15 rr5 ml) Route: PO; 23:22 Follow up: Response: No adverse reaction rr5 21:31 Drug: Zofran 4 mg Route: IVP; Site: right antecubital; rr5 23:23 Follow up: Response: No adverse reaction rr5 21:35 Drug: ProTONIX 40 mg Route: IVP; Site: right antecubital; rr5 23:23 Follow up: Response: No adverse reaction rr5 23:01 Drug: Lasix 20 mg {Note: bp 135/91.} Route: IVP; Site: right antecubital; rr5 23:22 Follow up: Response: No adverse reaction rr5 Outcome: 23:10 Discharge ordered by . cp 23:21 Discharged to home ambulatory, with family. rr5 23:21 Condition: stable 23:21 Discharge instructions given to patient, Instructed on discharge instructions, follow up and referral plans. medication usage, Demonstrated understanding of instructions, follow-up care, medications, Prescriptions given X 2. 23:33 Patient left the ED. rr5 Signatures: Pili Castillo Corey, PA PA cp Antunez, Elena RN RN Charles Vega RN RN rr5
--- NOTE | 2018-07-15 07:06 | EKG ---
Test Date: 2018-07-14 Test Time: 21:47:00 Asbestos Shingle Inspector: RR MEASUREMENT RESULTS: Intervals: Rate: 90 OK: QRSD: 82 QT: 386 QTc: 472 Robertson: P: OK: QRS: 35 T: 27 INTERPRETIVE STATEMENTS: Atrial fibrillation Cannot rule out Anterior infarct, age undetermined Abnormal ECG No previous ECG available for comparison Electronically Signed On 07-15-18 07:05:53 TIME CLOCK REPAIRER by Manuel Li
--- NOTE | 2018-07-15 07:14 | RAD REPORT ---
EXAM DESCRIPTION: US - Abdomen Exam Limited - 07/14/2018 10:56 pm CLINICAL HISTORY: Abdominal pain COMPARISON: None. FINDINGS: No gallstones, sludge or other abnormalities within the gallbladder lumen. There is no wal l thickening or pericholecystic fluid. No common duct stone or biliary tree dilatation identified. There is a small hepatic cyst near the gallbladder fossa. IMPRESSION: Normal gallbladder and biliary tree ultrasound.
--- NOTE | 2018-07-15 07:20 | RAD REPORT ---
EXAM DESCRIPTION: RAD - Chest Single View - 07/14/2018 9:46 pm CLINICAL HISTORY: Chest pain COMPARISON: None. TECHNIQUE: AP portable chest image was obtained 2144 hours . FINDINGS: Lung volumes are relatively low. This accentuates interstitial pattern. No peripheral mass or consolidation. Heart size is magnified by portable imaging, body habitus and shallow inspiration. Significant failure or volume overload are doubtful. No measurable pleural effusion and no pneumotho rax. No acute bony abnormality seen. Aortic calcifications are present without aneurysm. IMPRESSION: No acute cardiopulmonary process.
== END 2018-07-14 23:33 | disposition home or self-care (01) ==
LOC: ER 19:12
DX: R10.13 Epigastric pain (principal); I10 Essential (primary) hypertension; I50.9 Heart failure, unspecified; I48.91 Unspecified atrial fibrillation; Z79.01 Long term (current) use of anticoagulants; Z79.82 Long term (current) use of aspirin
CPT/HCPCS: 36415; 71045; 76705; 80048; 80076; 83690; 83735; 83880; 84484; 85025; 85610; 93005; 96374; 96375; 99284; C9113; J1940; J2405